=== PATIENT | male | born 1945 | race Caucasian/White ===

== ENCOUNTER 2017-02-08 10:50 | Inpatient (IN) | payer MEDICARE, BC ==
[~2017-02-08] VITALS: Ht 175.3 cm; Wt 89.6 kg
[~2017-02-08 10:50] MED LIST: AMLO1CAP14 PO; ASPI-496 PO; ATOR40TA78 PO; BACITRACIN 50,000 UNIT ONE; BIOTIN PO; BUPIVACAINE/PF-EPI 0.5% 1:200K ONE; CHOL200024 PO; CYAN25009 PO; EZET10TA3 PO; GLUC1TAB27 PO; METF10002 PO; METO25TA35 PO; OMEG1CAP6 PO; POTA20TA14 PO; SPIR50TA2 PO; THROMBIN 20,000 UNIT VIAL TP ONE; TRAM50TA2 PO; UBID100C24 PO; VIT1TABL32 PO
[2017-02-08 11:45] VITALS: BP 131/83
[2017-02-08] MEDS ORDERED: LACTATED RINGERS 1,000 ML IV SCH (11:50)
[2017-02-08] MEDS ORDERED: BUPIVACAINE/PF-EPI 0.5% 1:200K ONE (13:18)
[2017-02-08] MEDS ORDERED: KETAMINE 10 MG/ML, 20ML ONE (17:28)
[2017-02-08] MEDS ORDERED: FENTANYL PF 250 MCG/5ML ONE (17:28)
[2017-02-08] MEDS ORDERED: METOCLOPRAMIDE 5 MG/ML, 2ML ONE (17:30)
[2017-02-08] MEDS ORDERED: PROPOFOL 10 MG/ML, 20ML ONE (17:30)
[2017-02-08] MEDS ORDERED: ONDANSETRON 2MG/ML, 2ML ONE (17:30)
[2017-02-08] MEDS ORDERED: CEFAZOLIN 1,000 MG ONE (17:30)
[2017-02-08] MEDS ORDERED: SUCCINYLCHOLINE 20 MG/ML, 10ML ONE (17:30)
[2017-02-08] MEDS ORDERED: ROCURONIUM 10 MG/ML ONE (17:30)
[2017-02-08] MEDS ORDERED: MEPERIDINE/PF 25MG/0.5ML IVPush PRN (18:30)
[2017-02-08] MEDS ORDERED: hydrALAzine 20 MG/ML, 1ML IV PRN (18:30)
[2017-02-08] MEDS ORDERED: PROMETHAZINE 25 MG/ML, 1ML IV PRN (18:30)
[2017-02-08] MEDS ORDERED: OXYcodone 5 MG/5 ML ORAL.SOL UDC PO PRN (18:30)
[2017-02-08] MEDS ORDERED: LABETALOL 5MG/ML, 20ML IV PRN (18:30)
[2017-02-08] MEDS ORDERED: MIDAZOLAM 1 MG/ML, 2ML IV PRN (18:30)
[2017-02-08] MEDS ORDERED: ONDANSETRON 2MG/ML, 2ML IVPush PRN (18:30)
[2017-02-08] MEDS ORDERED: FENTANYL PF 100 MCG/2ML ONE ×2 (20:19→21:07)
[2017-02-08] MEDS ORDERED: OXYcodone 5 MG/5 ML ORAL.SOL UDC ONE (20:19)
[2017-02-08] MEDS ORDERED: HYDROmorphone 2 MG/ML, 1ML ONE (20:19)
[2017-02-08] MEDS: HYDROmorphone 1 MG/ML, 1ML IV PRN ×4 (20:25→21:06)
[2017-02-08] MEDS: FENTANYL PF 100 MCG/2ML IV PRN ×4 (20:32→21:35)
[2017-02-08] MEDS ORDERED: PHARMACY MAY ADJ FOR RENAL FX MC PRN (22:30)
[2017-02-08] MEDS ORDERED: morphine SULFATE 10 MG/ML, 1ML IV PRN (23:00)
[2017-02-08] MEDS ORDERED: METHOCARBAMOL 1,000 MG in DEXTROSE 5% 100 ML IV ONE (23:00)
[2017-02-08] MEDS ORDERED: ONDANSETRON 2MG/ML, 2ML IV PRN (23:00)
[2017-02-08] MEDS ORDERED: BISACODYL 10 MG SUPP PR PRN (23:00)
[2017-02-08] MEDS: NS + 20MEQ KCL 1,000 ML IV SCH (23:00)
[2017-02-08] MEDS ORDERED: HYDROcodone/APAP 5/325 TABLET PO PRN (23:00)
[2017-02-08] MEDS ORDERED: MAGNESIUM HYDROXIDE 8%, 30ML UDC PO PRN (23:00)
[2017-02-08] MEDS: CEFAZOLIN PMX 1GM/50ML 50 ML IVPB SCH (23:15)
[2017-02-08] MEDS: ATORVASTATIN 40 MG TABLET PO SCH (23:40)
[2017-02-08] MEDS: BENAZEPRIL 20 MG TABLET PO SCH (23:40)
[2017-02-08] MEDS: AMLODIPINE 5 MG TABLET PO SCH (23:40)
[2017-02-08] MEDS: metFORMIN 500 MG TABLET PO SCH (23:40)
[2017-02-09 00:31] VITALS: BP 110/53
[2017-02-09 04:00] VITALS: BP 109/67
[2017-02-09] MEDS: OXYcodone/APAP 5/325MG TABLET PO PRN ×5 (05:02→21:17)
[2017-02-09] MEDS: NS + 20MEQ KCL 1,000 ML IV SCH ×2 (06:42→22:44)
[2017-02-09] MEDS: CEFAZOLIN PMX 1GM/50ML 50 ML IVPB SCH (06:42)
[2017-02-09] MEDS: INSULIN REGULAR 100 UNITS/ML, 3ML VIAL SQ-INSULIN SCH ×4 (07:00→21:36)
[2017-02-09 08:36] VITALS: BP 113/66
[2017-02-09] MEDS: METHOCARBAMOL 750 MG in DEXTROSE 5% 100 ML IV SCH ×2 (08:55→17:08)
[2017-02-09] MEDS: AMLODIPINE 5 MG TABLET PO SCH ×2 (08:56→21:17)
[2017-02-09] MEDS: CHOLECALCIFEROL 1,000 UNIT TABLET PO SCH (08:56)
[2017-02-09] MEDS: EZETIMIBE 10 MG TABLET PO SCH ×2 (08:56→21:17)
[2017-02-09] MEDS: metFORMIN 500 MG TABLET PO SCH ×2 (08:56→17:08)
[2017-02-09] MEDS: BENAZEPRIL 20 MG TABLET PO SCH ×2 (08:56→21:17)
[2017-02-09] MEDS: OMEGA-3/FISH OIL CAPSULE PO SCH (08:57)
[2017-02-09] MEDS: SPIRONOLACTONE 50 MG TABLET PO SCH (08:57)
[2017-02-09] MEDS: POTASSIUM CHLORIDE 20 MEQ TAB.ER.PRT PO SCH (08:57)
[2017-02-09] MEDS: MULTIVITAMIN 1 TABLET PO SCH (08:57)
[2017-02-09] MEDS: SENNA/DOCUSATE TABLET PO SCH (08:57)
[2017-02-09 09:00] VITALS: BP 117/73
[2017-02-09] MEDS ORDERED: METOPROLOL TARTRATE 25 MG TABLET PO SCH (09:00)
[2017-02-09] MEDS ORDERED: DEXAMETHASONE 4 MG/ML, 1ML IVPush ONE (13:30)
[2017-02-09 15:04] VITALS: BP 108/57
[2017-02-09 20:33] VITALS: BP 144/73
[2017-02-09] MEDS: ATORVASTATIN 40 MG TABLET PO SCH (21:17)
[2017-02-10] MEDS: OXYcodone/APAP 5/325MG TABLET PO PRN ×2 (01:10→05:18)
[2017-02-10] MEDS: METHOCARBAMOL 750 MG in DEXTROSE 5% 100 ML IV SCH ×2 (01:10→08:33)
[2017-02-10 01:13] VITALS: BP 108/68
[2017-02-10] MEDS: INSULIN REGULAR 100 UNITS/ML, 3ML VIAL SQ-INSULIN SCH ×2 (06:45→12:02)
[2017-02-10 07:45] VITALS: BP 111/62
[2017-02-10] MEDS: metFORMIN 500 MG TABLET PO SCH (08:29)
[2017-02-10] MEDS: SPIRONOLACTONE 50 MG TABLET PO SCH (08:29)
[2017-02-10] MEDS: OMEGA-3/FISH OIL CAPSULE PO SCH (08:29)
[2017-02-10] MEDS: POTASSIUM CHLORIDE 20 MEQ TAB.ER.PRT PO SCH (08:30)
[2017-02-10] MEDS: BENAZEPRIL 20 MG TABLET PO SCH (08:30)
[2017-02-10] MEDS: MULTIVITAMIN 1 TABLET PO SCH (08:31)
[2017-02-10] MEDS: AMLODIPINE 5 MG TABLET PO SCH (08:31)
[2017-02-10] MEDS: SENNA/DOCUSATE TABLET PO SCH (08:31)
[2017-02-10] MEDS: EZETIMIBE 10 MG TABLET PO SCH (08:32)
[2017-02-10] MEDS: CHOLECALCIFEROL 1,000 UNIT TABLET PO SCH (08:32)
[2017-02-10] MEDS: NS + 20MEQ KCL 1,000 ML IV SCH (08:34)
[2017-02-10] MEDS ORDERED: BISACODYL 10 MG SUPP PR ONE (09:00)
[2017-02-10] MEDS ORDERED: OXYC-229 PO (09:02)
[2017-02-10] MEDS ORDERED: SENN1TAB7 PO (09:03)
[2017-02-10] MEDS ORDERED: METH750T87 PO (09:03)
[2017-02-11] MEDS ORDERED: METHOCARBAMOL 750 MG TABLET PO SCH (07:00)
== END 2017-02-10 13:50 | disposition home or self-care (01) | DRG 517 ==
LOC: OUT 10:50 → EDSTATUS 16:00 → 4NOR 22:01 → OUT 22:03
PROVIDERS: ADMIT Neurological Surgery; ATTEND Neurological Surgery
PROC: 01NR0ZZ Release Sacral Nerve, Open Approach (ICD-10-PCS; 2017-02-08)
PROC: 01NB0ZZ Release Lumbar Nerve, Open Approach (ICD-10-PCS; principal; 2017-02-08 16:00)
DX: M48.06 Spinal stenosis, lumbar region (principal); M48.07 Spinal stenosis, lumbosacral region; E11.9 Type 2 diabetes mellitus without complications; E78.00 Pure hypercholesterolemia, unspecified; R53.81 Other malaise; Z88.1 Allergy status to other antibiotic agents; Z88.8 Allergy status to other drugs, medicaments and biological substances; Z90.89 Acquired absence of other organs
CPT/HCPCS: 36415; 72100; 82962; 86850; 86900; J0690; J1100; J1170; J2405; J2704; J3010; J3480; J0330; J2765; J2800; J7120